=== PATIENT | female | born 2000 | race Caucasian/White ===

== ENCOUNTER 2020-10-07 12:29 | Inpatient (IN) ==
[2020-10-07] MEDS ORDERED: Lidocaine/EPI 1:100k 1% 20 ML VIAL INFILT ONE (13:06)
[2020-10-07 13:24] LABS: Bilirubin,Urine Negative (Negative); Blood,Urine Negative (Negative); Clarity,Urine Clear (Clear); Color,Urine Light-Yellow (Yellow); Glucose,Urine (UA) Normal (Normal); Ketones,Urine Negative (Negative); Leukocyte Esterase,Urine Small (Negative); Mucus,Urine Few per lpf (None-Few); Nitrite,Urine Negative (Negative); PH,Urine 6.5 pH Units (5.0-8.0); Protein,Urine Negative (Neg-Trace); RBC,Urine 0-3 per hpf (0-3); Specific Gravity,Urine 1.019 (1.010-1.025); Squamous Epithelial Cell,Urine Few per hpf (None-Few); Urobilinogen,Urine Normal (Normal)
[2020-10-07 13:25] LABS: Eosinophils # 0.1 K/mcL (0.0-0.6); Eosinophils % 1.7 %; Hematocrit 34.2 % (35.3-44.9); Hemoglobin 11.1 g/dL (11.5-15.4); Immature Granulocytes % 0.2 % (0-4); Lymphocytes # 1.1 K/mcL (0.6-4.6); Lymphocytes % 25.3 %; Mean Corpuscular HGB Conc 32.5 g/dL (31.6-35.5); Mean Corpuscular Volume 92.4 fL (83.0-100.0); Mean Platelet Volume 10.3 fL (9.4-12.4); Monocytes # 0.4 K/mcL (0.0-1.3); Monocytes % 9.5 %; Neutrophils # 2.6 K/mcL (1.6-8.9); Platelet Count 244 K/mcL (140-400); Red Cell Distribution Width 13.8 % (11.5-14.5); Segmented Neutrophils % 62.3 %; White Blood Count 4.2 K/mcL (4.3-11.1)
[2020-10-07 13:27] LABS: Amphetamine Screen,Urine Negative ng/mL (Cutoff=1000); Barbiturate Screen,Urine Negative ng/mL (Cutoff=200); Benzodiazepines Screen,Urine Negative ng/mL (Cutoff=200); Cannabinoid Screen,Urine Negative ng/mL (Cutoff = 50); Cocaine Screen,Urine Negative ng/mL (Cutoff= 300); Opiate Screen,Urine Negative ng/mL (Cutoff=300); Phencyclidine Screen,Urine Negative ng/mL (Cutoff=25)
[2020-10-07 13:41] LABS: Acetaminophen < 10 mcg/mL (10-20); BUN/Creatinine Ratio 19 (6-26); Blood Urea Nitrogen 16 mg/dL (6-20); Calcium 9.2 mg/dL (8.6-10.3); Carbon Dioxide 24 mEq/L (23-29); Chloride 109 mEq/L (98-107); Chol/HDL Ratio 2.9 (0-4.9); Cholesterol 158 mg/dL (< 200); Ethanol < 10 mg/dL (Less than 10); Glucose 95 mg/dL (70-105); HDL Cholesterol 55 mg/dL (40-59); LDL Cholesterol,Calculated 93 mg/dL (< 100); Osmolality,Calculated 289 (280-300); Potassium 3.7 mEq/L (3.5-5.1); Salicylate < 2.5 mg/dL (15.0-30.0); Sodium 139 mEq/L (136-145); Triglycerides 49 mg/dL (< 150); eGFR For African Americans > 60 (> 60); eGFR For Non-African Americans > 60 (> 60)
[2020-10-07] MEDS ORDERED: Neosporin OINT 1 APPL PACKET TP ONE (14:28)
[2020-10-07 15:50] LABS: Estimated Average Glucose 103 mg/dl; Hemoglobin A1C 5.2 %
[2020-10-07] MEDS ORDERED: haloperidoL 5 MG TABLET PO PRN (17:26)
[2020-10-07] MEDS ORDERED: QUEtiapine Fumarate 25 MG TABLET PO PRN (17:26)
[2020-10-07] MEDS ORDERED: hydrOXYzine pamoate 25 MG CAPSULE PO PRN (17:26)
[2020-10-07] MEDS ORDERED: *HR* LORazepam 1 MG TABLET PO PRN (17:26)
[2020-10-07] MEDS ORDERED: MOM Conc 10 ML UD.LIQ PO PRN (17:26)
[2020-10-07] MEDS ORDERED: Mag Hydrox/Al Hydrox/Simeth 30 ML UDC PO PRN (17:26)
[2020-10-07] MEDS ORDERED: *HR* LORazepam 2 MG/ML VIAL IM PRN (17:26)
[2020-10-07] MEDS ORDERED: Haloperidol Lactate 5 MG/ML VIAL IM PRN (17:26)
[2020-10-07] MEDS: Acetaminophen 325 MG TABLET PO PRN (20:44)
[2020-10-08] MEDS: Topiramate 100 MG TABLET PO SCH ×2 (14:24→20:56)
[2020-10-08] MEDS: Acetaminophen 325 MG TABLET PO PRN (20:57)
[2020-10-08] MEDS ORDERED: traZODone 50 MG TABLET PO SCH (21:00)
[2020-10-09] MEDS: Topiramate 100 MG TABLET PO SCH (09:21)
[2020-10-09 10:52] VITALS: BP 128/76
== END 2020-10-09 12:35 | disposition home or self-care (01) | DRG 881 ==
LOC: EMEROOARM 12:29 → 1ANU 17:16
PROVIDERS: ADMIT Psychiatry & Neurology Psychiatry; ATTEND Psychiatry & Neurology Psychiatry